=== PATIENT | male | born 1960 | race Caucasian/White ===

== ENCOUNTER → 2025-01-10 21:10 | Emergency (ER) | payer MEDICARE, OTHER | END | disposition left against medical advice (07) | LOC: ER 21:10 | DX: M54.9 Dorsalgia, unspecified (principal); Z53.21 Procedure and treatment not carried out due to patient leaving prior to being seen by health care provider ==

== ENCOUNTER 2025-05-07 13:22 | Emergency (ER) | payer MEDICARE, OTHER ==
[~2025-05-07] VITALS: Ht 175.3 cm; Wt 100.7 kg
[2025-05-07] MEDS ORDERED: APIX5TAB PO (14:35)
[2025-05-07] MEDS ORDERED: MONT10TA33 PO (14:35)
[2025-05-07] MEDS ORDERED: TAMS-3 PO (14:35)
[2025-05-07] MEDS ORDERED: OMEP40CA21 PO (14:35)
[2025-05-07] MEDS ORDERED: TOPI100T38 PO (14:35)
[2025-05-07] MEDS ORDERED: MULT-213 PO (14:35)
[2025-05-07] MEDS ORDERED: PARO30TA4 PO (14:35)
[2025-05-07] MEDS ORDERED: ONDA4TAB11 PO (14:42)
[2025-05-07] MEDS ORDERED: OXYC5TAB3 PO (14:42)
[2025-05-07] MEDS ORDERED: ACET-2030 PO (14:42)
[2025-05-07] MEDS ORDERED: TIZA-180 PO (14:42)
[2025-05-07] MEDS ORDERED: MELA5TAB PO (14:42)
[2025-05-07] MEDS ORDERED: ALBU18HF2 IH (14:42)
[2025-05-07 15:49] LABS: PLATELET COUNT (AUTO) 224 K/uL (152-348); RED BLOOD CELL COUNT(AUTO) 3.86 MIL/uL (4.06-5.63); RED CELL DISTRIBUTION WIDTH 21.1 % (12.1-16.2); WHITE BLOOD COUNT (AUTO) 4.6 K/uL (3.6-10.2)
[2025-05-07 15:57] LABS: CREATININE 0.8 mg/dL (0.6-1.3); SODIUM SERUM 146.0 mmol/L (136-145); UREA NITROGEN, BLOOD 10.0 mg/dL (7-18)
[2025-05-07 17:45] LABS: IRON, SERUM 31 ug/dL (50-175)
[2025-05-07] MEDS ORDERED: GUAI5SYR4 PO (18:14)
[2025-05-07] MEDS ORDERED: FERR325T23 PO (18:14)
[2025-05-07 19:15] VITALS: BP 109/62
[2025-05-07 20:05] VITALS: BP 130/77; O2SAT 97
== END 2025-05-07 20:10 | disposition home or self-care (01) ==
LOC: ER 13:22
DX: S70.02XA Contusion of left hip, initial encounter (principal); D50.9 Iron deficiency anemia, unspecified; R60.0 Localized edema; M79.604 Pain in right leg; E78.5 Hyperlipidemia, unspecified; K21.9 Gastro-esophageal reflux disease without esophagitis; F31.9 Bipolar disorder, unspecified; N40.0 Benign prostatic hyperplasia without lower urinary tract symptoms; Z79.01 Long term (current) use of anticoagulants; Z79.899 Other long term (current) drug therapy; Z88.0 Allergy status to penicillin; Z88.8 Allergy status to other drugs, medicaments and biological substances; Z87.39 Personal history of other diseases of the musculoskeletal system and connective tissue; X58.XXXA Exposure to other specified factors, initial encounter; Y93.89 Activity, other specified; Y92.89 Other specified places as the place of occurrence of the external cause; Y99.8 Other external cause status
CPT/HCPCS: 36415; 71045; 73502; 83550; 85025; A4606; A4663